=== PATIENT | female | born 1945 | race Caucasian/White ===

== ENCOUNTER 2017-09-21 11:12 | Outpatient (CLI) | payer OTHER | END 2017-09-21 16:20 | disposition home or self-care (01) | LOC: RAD 501 11:12 | DX: M41.25 Other idiopathic scoliosis, thoracolumbar region (principal) ==

== ENCOUNTER → 2019-07-25 11:27 | Outpatient (CLI) | payer OTHER | END | disposition home or self-care (01) | LOC: LAB 11:27 | DX: E55.9 Vitamin D deficiency, unspecified (principal); M85.88 Other specified disorders of bone density and structure, other site; E88.89 Other specified metabolic disorders; M81.8 Other osteoporosis without current pathological fracture; E56.1 Deficiency of vitamin K ==

== ENCOUNTER 2019-08-01 13:46 | Outpatient (CLI) | payer OTHER | END 2019-08-01 13:47 | disposition home or self-care (01) | LOC: NUCLEAR 13:46 | DX: M81.0 Age-related osteoporosis without current pathological fracture (principal) ==